=== PATIENT | male | born 1960 | race Caucasian/White ===

== ENCOUNTER 2016-02-26 10:50 | Emergency (ER) | payer MEDICAID ==
[2014-12-21 20:02] VITALS: BMI 29.2
[~2016-02-26 10:50] MED LIST: AMITRIPTYLINE H50 MG PO; CYCLOBENZAPRINE10 MG PO; LEXAPRO20 MG PO; NEXIUM40 MG PO; NORCO 7.5/325 T1 TA1 PO; SEROQUEL XR50 MG PO; TYLENOL W/CODEI1 TAB PO; XANAX1 MG PO
== END 2016-02-26 12:15 | disposition home or self-care (01) ==
LOC: D.ER 10:50
DX: K04.7 Periapical abscess without sinus (principal); K02.9 Dental caries, unspecified; M19.90 Unspecified osteoarthritis, unspecified site; F32.9 Major depressive disorder, single episode, unspecified; F17.200 Nicotine dependence, unspecified, uncomplicated

== ENCOUNTER 2016-06-27 11:51 | Emergency (ER) | payer MEDICAID ==
[2014-12-21 20:02] VITALS: BMI 29.2
== END 2016-06-27 14:18 | disposition home or self-care (01) ==
LOC: D.ER 11:51
DX: R07.89 Other chest pain (principal); Z91.81 History of falling; F17.200 Nicotine dependence, unspecified, uncomplicated

== ENCOUNTER 2016-12-20 13:05 | Emergency (ER) | payer MEDICAID ==
[2014-12-21 20:02] VITALS: BMI 29.2
== END 2016-12-20 14:10 | disposition home or self-care (01) ==
LOC: D.ER 13:05
DX: K04.7 Periapical abscess without sinus (principal); K08.89 Other specified disorders of teeth and supporting structures

== ENCOUNTER 2017-02-03 12:19 | Emergency (ER) | payer MEDICAID ==
[2014-12-21 20:02] VITALS: BMI 29.2
== END 2017-02-03 13:52 | disposition home or self-care (01) ==
LOC: D.ER 12:19
DX: K04.7 Periapical abscess without sinus (principal); K08.89 Other specified disorders of teeth and supporting structures